=== PATIENT | female | born 1950 | race Caucasian/White ===

== ENCOUNTER → 2017-04-07 | Outpatient (CLI) | payer OTHER, BC ==
[~2017-04-07] VITALS: Ht 162.6 cm; Wt 68.0 kg
[~2017-04-07] MED LIST: HYDROCHLOROTHIA25 M2 PO
--- NOTE | ~2017-04-07 | S ---
[facility] [address] [place] [address] SURGICAL PATH RPT PROCEDURE Name: LUDIN CANO Room #: REG Alistair Adler.#: [id number] Admission: 04/07/17 Date of : 48 Discharge: Report #: [id number] Path Case #: [id number] PATHOLOGY REPORT DRAFT COLLECTION DATE: 04/07/2017 RECEIVED DATE: 04/07/2017 SPECIMEN(S) RECEIVED: A.Colon polyp at 50 cm
--- NOTE | ~2017-04-07 | P ---
[facility] [place] [address] PROCEDURE REPORT Name: LUDIN CANO Room #: REG [facility]#: [id number] Admission: 04/07/17 Attend Phys: Juan Donohue MD Discharge: Date of : 48 Report #: [id number] THIS REPORT FOR: //name// CC: Juan Iqbal MD DATE OF SERVICE: 04/07/2017 BRIEF HISTORY: The patient is a 66-year-old woman for high risk screening colonoscopy due to prior history of colon polyps. POSTOPERATIVE DIAGNOSES: 1. Flat 4-5 mm polyp at 50 cm. 2. Moderate sigmoid diverticulosis coli. MEDICATIONS: Deep sedation with propofol per anesthesia. SPECIMEN: Polyp from 50 cm. ESTIMATED BLOOD LOSS: 3 mL. PROCEDURE: Colonoscopy to cecum and terminal ileum with biopsy. FINDINGS: Prior to propofol sedation, procedure of colonoscopy discussed with the patient as well as potential risks and its complications. She indicates she understands and desires to proceed. DESCRIPTION OF PROCEDURE: With the patient in left lateral decubitus position, digital examination was completed which revealed no abnormalities. Subsequently, the [address] video colonoscope was introduced in the rectum, advanced under direct vision to the cecum. Done with minimal difficulty. The cecum was identified by the ileocecal valve and the appendiceal orifice. I was able to visualize the distal segment of the terminal ileum, which was inspected and noted to be unremarkable. At that point, the scope was slowly withdrawn and careful circumferential views were obtained including retroflexing the scope in the ascending colon. Upon slow withdrawal of the scope, the prep was excellent. The mucosa was within normal limits, normal vascular pattern, normal light reflex. As we withdrew the scope, no abnormalities were noted until we reached the distal descending colon and at 50 cm, a flat 4-5 mm polyp was seen and removed with multiple biopsies. Scope was further withdrawn and no additional neoplastic changes were seen. She is known to have moderately severe diverticular disease of the sigmoid colon without endoscopic evidence of diverticulitis. Scope was withdrawn in the rectum and upon retroflexion, no abnormalities were seen. Scope was withdrawn. The patient tolerated the procedure well. [facility] [address] [place] [address] PROCEDURE REPORT Name: BRADY CANORASHI Wilson [id number] Admission: 04/07/17 Attend Phys: Juan Donohue MD Discharge: Date of : 48 Report #: [id number] CONDITION OF THE PATIENT UPON DISCHARGE: Following procedure, the patient drowsy, arousable and conversant and will be discharged home when fully ambulatory. INSTRUCTIONS TO THE PATIENT AND FAMILY AT THE TIME OF DISCHARGE: One small polyp identified, removed today. We will follow up on the path. If this is an adenoma, I suggest followup colon exam in 5 years; if it is not an adenoma, then 10 years would be indicated. She will return to the care of Dr. Amelia Iqbal. Again, she will return to see me as needed. Last colonoscopy was about 7-1/2 years ago. Withdrawal time from the cecum was 15 minutes and 36 seconds. <ELECTRONICALLY SIGNED> By: Juan Donohue MD 04/09/17 1339 [id number] Juan Donohue MD /nt
== END | disposition home or self-care (01) ==
LOC: GI 07:22
DX: Z09 Encounter for follow-up examination after completed treatment for conditions other than malignant neoplasm (principal); K63.5 Polyp of colon; K57.30 Diverticulosis of large intestine without perforation or abscess without bleeding; I10 Essential (primary) hypertension; Z86.010 Personal history of colon polyps; Z90.710 Acquired absence of both cervix and uterus; Z98.890 Other specified postprocedural states; Z79.899 Other long term (current) drug therapy